=== PATIENT | male | born 1985 | race Caucasian/White ===

== ENCOUNTER → 2023-12-15 | Outpatient (CLI) | payer OTHER, SELFPAY ==
--- NOTE | 2023-12-15 07:36 | US_ITS ---
STUDY: ABDOMINAL ULTRASOUND - RIGHT UPPER QUADRANT; ELASTOGRAPHY REASON FOR VISIT: Male, 38 years old. Elevated liver function tests. TECHNIQUE: Ultrasound evaluation of the right upper quadrant was performed with real-time and static westfall-scale imaging. Point quantification shear wave elastography was performed ([place]). TECHNICAL QUALITY: Adequate. COMPARISON: None. FINDINGS: Liver: The liver measures 14.9 cm. There is increased echogenicity consistent with fatty infiltration. The bile ducts are within normal limits. There is hepatic color flow. The direction of portal flow is hepatopetal. There is no demonstrated mass lesion. Median liver stiffness measured 5.4 kPa. Gallbladder: Normal distended gallbladder. The gallbladder wall measures 1.6 mm. There is a negative sonographic Puentes''s sign. There is no pericholecystic fluid. There are no gallstones. Focal fatty sparing adjacent to the gallbladder wall. Common Bile Duct (C.B.D.): The common bile duct measures 2.7 mm. Pancreas: There is increased echogenicity of the pancreas. There is no demonstrated pancreatic mass or cyst. Right Kidney: Normal size of the right kidney. The right kidney measures 10.9 cm x 5.4 cm x 4.2 cm. Normal renal cortex. The right cortex measures 1.3 cm. There is no demonstrated renal mass or cyst. There is no right hydronephrosis. US/ABD Limited w/ Elastography IMPRESSION: 1. Liver stiffness measures 5.4 kPa compatible with F0-F1 (Normal to mild liver fibrosis) Metavir score. Electronically Signed: Lane Eugene MD at 14:58 EST ,
== END | disposition home or self-care (01) ==
PROVIDERS: PCP Internal Medicine; Referring Provider Internal Medicine; Visit Provider Internal Medicine
DX: R74.8 Abnormal levels of other serum enzymes (principal)
CPT/HCPCS: 76705; 76981

== ENCOUNTER 2025-06-04 18:00 | Outpatient (RCR) | payer OTHER, SELFPAY ==
--- NOTE | 2025-04-30 17:50 | HP.PTEVAL_ITS ---
Patient's Visit Information Visit Information Visit Information: SEAN RAY is a 39 year old M referred to Physical Therapy by Dr. Joanna Cao MD with a diagnosis of R knee pain. Date of Evaluation: 04/30/25 Physical Therapist: Mika Flores, DPT, OCS, CSCS Visit Plan Frequency: 2x /Week Duration: 4-6 Weeks Plan: 2x/week for 4-6 for IE HEP HS and quad set 10x 2x.day and HS , quad stretch 30 5x daily also activity modification for possible meniscal pathology. Treat with Knee mobs for flexion, ext, rollout and stretch HS, progressive strength SLR for home and then WB strength to tolerance and gradual return to gym workout and regular routine when motion is full without pain. Overall suspicious of meniscal pathology and need to geet motion back and restrengthen /return to function Subjective Subjective: After skiing in january over spring break overworked leg and got R posterior knee pain. Doctor thought it was inflammed and prescirbed meloxicam for two weeks which did not help. Discomfort is posterior, worse with squatting, sitting too long and trying to stand form sitting, and stiffness with straightening all the way locking leg, sometimes with bending to pick things up off floor. Symptoms have not subsided. No real injury on the ski trip but no symptoms prior. Not usually a skiier though. Works out at regularly. Has not been able to due to work and this. 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 Stiff and sore after sitting and limps for few steps. Stairs are minimal and are no problem. sleep is not a problem but uncomfy at times trying to get comfortable. Pain R posterior knee.: Pain Intensity (Out of 10): 0 Pain Intensity Range: 0 and 2 Comment: annoying Objective Objective: walks into PT I without antalgia, trasnfers I chair and bed. Steps reciprocally without much pain. toe walk is good, heel walking hurts, marching and butt kciks give him pain with flexion. AROM R knee 0 with pain to 122 with pain limiting. 130 after repeated flexion. L knee 0-137. tightness B in quads and HS at -35 90/90 test. strength HS and quad B 5/5 no pain, hips 4-abd and ext and rotation R and 4 L, flexion 4+ B no pain. reflexes 2/3 patella adn achilles B Sensation WNL to gross light touch LE B - ant drawer, - misael, - post sag, - pivot shift, - varus and valgus, slight positive bounce home on R, - patellar grind, - disco. Good balance, mostly hurt with WB knee flexion and end range knee flexion ext. Balance/Special Test Scores Lower Extremity Functional Score: 61 Goals Goal 1:: 0-137 R knee flexion without pain Goal Time Frame: 4-6 Weeks Goal 2:: Patient feel 90% better in overall pain and mobility and 1/10 at worst transiently. Goal Time Frame: 4-6 Weeks Goal 3:: stoop without pain L knee Goal Time Frame: 4-6 Weeks Goal 4:: No pain arising from sitting after work Goal Time Frame: 4-6 Weeks Goal 5:: Back to gym routine without pain Goal Time Frame: 4-6 Weeks Rehabilitation Potential Physical Therapy Diagnosis: r knee pain limiting comfortable function. Suspicious of meniscal pathology. Rehabilitation Potential: Good Anticipated Interventions Patient/Client Instruction: Educate patient on: Condition and Plan of Care For the Purpose of:: To decrease pain, To decrease swelling/inflammation, To increase ROM, To improve nutrient delivery to tissue, To improve muscle performance and motor function and To increase tolerance to activity/condition/position Therapeutic Exercise to Include: Strength training, Flexibilty training, Passive ROM and Active ROM For the Purpose of:: To decrease pain, To increase ROM, To improve nutrient delivery to tissue, To improve muscle performance and motor function, To increase tolerance to activity/condition/position and To improve ability of physical actions for home/community/work/leisure Manual Therapy Techniques to Include: Mobilization, Passive ROM and Soft tissue mobilization For the Purpose of:: To decrease pain, To increase ROM and To improve nutrient delivery to tissue Cryotherapy (ice pack, ice massage): Yes For the Purpose of:: To decrease swelling/inflammation Text: Thank you for the opportunity to evaluate your patient. For Medicare and Medicare HMO plans, please review the plan of care and approve it. It will need to be FAXED BACK to us at [phone] for Medicare purposes. For Medicare only, by signing this I certify the plan of care. Please let me know if there are questions or concerns regarding this plan of care. Physician Signature: Date:
--- NOTE | 2025-06-04 18:51 | HP.PTDCSUM ---
Discharge Summary D/C summary: It has been my pleasure to treat SEAN RAY referred by Dr. Joanna Cao MD, with the diagnosis of R knee pain for a total of 8 visit(s). Discharge Date: 06/04/25 Please see the following information for a summary of their discharge status. Subjective Subjective: Getting better. Still gets stiff. I have to use it. Tolerating home and gym workout well. To doctor in a month. Pain this week 3/10 with stiffness after stagnant. Activities pretty normal. Takes 5 minutes to loosen up in am.Feels comfortable getting back to machine based streength in gym on his own. Will f/u with doctor if improvement doees not continue. Pain R posterior knee.: Pain Intensity (Out of 10): 1 Overall Improvement % Improvement: 70 Objective Objective/Function: walking without antalgia. heel walk still painful as is bounce home and quad set slightly but funcitonally. AROM 134 r knee with some posterior pain at end range, 138 L. Overall much improved but still suspicious of meniscal pathology. Since he is improving, he will continue and let doctor know if that improvement stagnates. Goals Goal 1:: 0-137 R knee flexion without pain Goal Progress: Progressing Goal 2:: Patient feel 90% better in overall pain and mobility and 1/10 at worst transiently. Goal Progress: 70% Goal 3:: stoop without pain L knee Goal Progress: Not Progressing Goal 4:: No pain arising from sitting after work Goal Progress: stiff Goal 5:: Back to gym routine without pain Goal Progress: Progressing Plan Plan: d/c to I HEP and gym program. D/C Information d/c sentence: If there are questions or concerns regarding this patient's physical therapy, please feel free to call me at [phone]. Thank you for the referral of this patient. Sincerely, Mika Flores, DPT, OCS, CSCS Balance/Gait/Functional tests Balance/Special Test Scores Lower Extremity Functional Score: 77 Improvement % Improvement: 70
== END 2025-06-04 19:00 | disposition home or self-care (01) ==
LOC: PT 18:00
PROVIDERS: PCP Internal Medicine; Referring Provider Internal Medicine; Visit Provider Internal Medicine
DX: M25.561 Pain in right knee (principal)
CPT/HCPCS: 97110; 97161; 97164

== ENCOUNTER → 2025-10-04 | Outpatient (CLI) | payer OTHER, SELFPAY ==
[2025-10-04 12:06] LABS: Mucous, Urine 0 SEEN /hpf (<or=2+); Red Blood Cells-Urine 0 SEEN /hpf (0-5); Squamous Epithelial Cells - UA 0 SEEN /hpf (0-5)
[2025-10-04 12:27] LABS: Color, Urine Yellow (Yellow); Glucose, Dipstick Normal (Normal); Ketone-Dipstick Negative (Negative); Leukocyte Esterase-Dipstick Negative /ul (Negative); Nitrite-Dipstick Negative (Negative); Occult Blood-Urine 10 /ul (Negative); Protein-Dipstick 30 mg/dl (Negative); Specific Gravity, Urine 1.020 (1.002-1.030); Urine Bilirubin Dipstick Negative (Negative)
[2025-10-04 12:36] LABS: Hematocrit 45.2 % (40-54); Hemoglobin 15.3 g/dL (13.0-16.5); Immature Granulocytes Count 0.020 X10^3/uL (0.0-0.0); Mean Corp Hgb Conc 33.8 g/dL (32-36); Mean Corpuscular Volume 87.6 fL (80-94); Mean Platelet Vol. 10.7 fl (6.2-12.0); NRBC Flagged by Analyzer 0 % (0-5); Platelet Count 257 K/mm3 (150-450); RBC Distribution Width CV 12.1 % (11.6-14.6); RBC Distribution Width SD 38.8 fl (35.1-43.9); Red Blood Count 5.16 M/mm3 (4.6-6.2); White Blood Count 6.3 K/mm3 (4.4-11.0)
[2025-10-04 12:46] LABS: Creatinine, Urine (random) 238.00 mg/dL (39.00-259.00); Microalbumin,Random Urine 18.9 mg/L (<20 mg/L)
[2025-10-04 12:57] LABS: AST(SGOT) 29 U/L (<=37); Alanine Aminotransfer ALT/SGPT 70 U/L (<=46); Albumin, Serum 4.6 g/dL (3.5-5.0); Alkaline Phosphatase 64 U/L (40-129); Anion Gap 9 (5-15); BUN 17 mg/dL (4-19); BUN/Creat Ratio 16.3 RATIO (10-20); Calcium,Total 9.5 mg/dL (7.6-11.0); Carbon Dioxide 26.4 mmol/L (21.0-32.0); Chloride 104 mmol/L (98-108); Globulin 2.6 g/dL (2.2-4.2); Glucose 97 mg/dL (70-99); Potassium 4.7 mmol/L (3.3-5.1)
== END | disposition home or self-care (01) ==
LOC: LABSPEC 12:03
PROVIDERS: PCP Internal Medicine; Referring Provider Internal Medicine; Visit Provider Internal Medicine
DX: R74.8 Abnormal levels of other serum enzymes (principal)
CPT/HCPCS: 80053; 81001; 82043; 82570; 85025

== ENCOUNTER → 2025-10-25 | Outpatient (CLI) | payer OTHER, SELFPAY ==
[2025-10-25 10:57] LABS: AST(SGOT) 29 U/L (<=37); Alanine Aminotransfer ALT/SGPT 77 U/L (<=46); Albumin, Serum 4.6 g/dL (3.5-5.0); Alkaline Phosphatase 65 U/L (40-129); Bilirubin, Direct 0.22 mg/dL (0.00-0.30); Ferritin 231 ng/mL (37-417); Globulin 2.9 g/dL (2.2-4.2)
[2025-10-28 14:09] LABS: Anti-Smooth Muscle ABS 7 Units (0-19); HEPATITIS B SURFACE AG Negative (Negative); Hep C Antibodies Non Reactive (Non Reactive); PSA, Total 0.5 ng/mL (0.0-4.0)
== END | disposition home or self-care (01) ==
PROVIDERS: PCP Internal Medicine; Referring Provider Internal Medicine; Visit Provider Internal Medicine
DX: R79.89 Other specified abnormal findings of blood chemistry (principal)
CPT/HCPCS: 36415; 80074; 80076; 82390; 82728; 83516; 84153